=== PATIENT | female | born 1995 | race Hispanic/Latino ===

== ENCOUNTER 2020-12-20 12:58 | Emergency (ER) | payer SELFPAY ==
[~2020-12-20] VITALS: Ht 152.4 cm; Wt 45.4 kg
[2020-12-20 13:11] VITALS: BP 117/78
[2020-12-20] MEDS ORDERED: ACETAMINOPHEN 500 MG TABLET PO ONE (13:30)
[2020-12-20] MEDS ORDERED: LIDOCAINE 5% TOPICAL PATCH TP ONE (13:30)
[2020-12-20] MEDS ORDERED: KETOROLAC 60 MG VIAL (30MG/ML) IM ONE (13:30)
[2020-12-20] MEDS ORDERED: KETOROLAC 60 MG VIAL (30MG/ML) ONE (14:41)
[2020-12-20] MEDS ORDERED: NAPR-1180 PO (15:26)
[2020-12-20] MEDS ORDERED: ORPH100 PO (15:26)
[2020-12-20] MEDS ORDERED: LIDOP TD (15:26)
[2020-12-20 15:53] VITALS: BP 120/80
== END 2020-12-20 16:36 | disposition home or self-care (01) ==
LOC: EDH 12:58
DX: S39.012A Strain of muscle, fascia and tendon of lower back, initial encounter (principal); S30.0XXA Contusion of lower back and pelvis, initial encounter; W18.39XA Other fall on same level, initial encounter; Y93.89 Activity, other specified; Y92.89 Other specified places as the place of occurrence of the external cause; Y99.8 Other external cause status
CPT/HCPCS: 72110; 72170; 72220; 81025; 96372; 99284; J1885